=== PATIENT | male | born 1995 | race Hispanic/Latino ===

== ENCOUNTER 2023-04-14 02:51 | Emergency (ER) | payer SELFPAY ==
[2023-04-14 03:22] LABS: Bacteria/HPF None Seen HPF (None Seen); Bilirubin Negative (Negative); Blood, Urine Negative (Negative); CAUTI Indications for Culture Dysuria,urgency,freq; Clarity Turbid (Clear); Glucose, Urine (Dipstick) Normal (Negative); Ketone, Urine Negative (Negative); Leukocyte 500 Leu/uL (Negative); Nitrite Negative (Negative); Protein, Urine (Dipstick) Negative (Neg-Trace); RBC/HPF 0-3 HPF (0-3); Specific Gravity, Urine 1.013 (1.002-1.036); Squamous Epithelial None Seen HPF (0-3); Urobilinogen Normal mg/dL (Less than 2); WBC/HPF Greater than 50 HPF (0-3)
[2023-04-14 03:24] LABS: Urine Culture Reflex Yes Yes
[2023-04-14] MEDS ORDERED: cefTRIAXone (ROCEPHIN) 500 MG VIAL ONE (03:43)
[2023-04-14] MEDS ORDERED: Lidocaine 1% MPF 2 ML VIAL ONE (03:43)
[2023-04-14 15:09] LABS: Chlam.trachomatis by PCR,Urine Not Detected (NotDetected); GC N.gonorrhoeae PCR,UrineVOID DETECTED (NotDetected)
== END 2023-04-14 04:08 | disposition home or self-care (01) ==
LOC: ERS 02:51
DX: Z11.3 Encounter for screening for infections with a predominantly sexual mode of transmission (principal); F17.200 Nicotine dependence, unspecified, uncomplicated
CPT/HCPCS: 81001; 87086; 87491; 87591; 96372; 99283; J0696

== ENCOUNTER 2023-04-27 20:52 | Emergency (ER) | payer SELFPAY ==
[2023-04-27 21:40] LABS: #Eosinphils 0.1 thou/uL (0.0-0.7); #Monocytes 0.5 thou/uL (0.11-0.59); #Neutrophils 3.5 thou/uL (1.40-6.50); %Basophils 0.5 % (0.0-1.0); %Eosinophils 1.7 % (0.0-10.0); %Lymphocytes 46.9 % (21.0-51.0); %Monocytes 6.1 % (0.0-10.0); %Neutrophils 44.4 % (42.0-75.0); Hematocrit 46.4 % (42.0-52.0); Hemoglobin 15.8 g/dL (14.0-18.0); Mean Corpuscular HGB CONC 34.1 g/dL (32.0-36.0); Mean Corpuscular Hemoglobin 29.8 pg (27.0-31.0); Mean Corpuscular Volume 87.5 fl (78.0-98.0); Mean Platelet Volume 9.9 fL (7.4-10.4); Platelet Count 318 10x3/uL (130-400); RBC Distribution Width 13.3 % (11.5-14.5); White Blood Cell (WBC) Count 7.8 10x3/uL (4.8-10.8)
[2023-04-27 21:59] LABS: Troponin I Less than 0.010 ng/mL (< 0.028)
[2023-04-27 22:03] LABS: ALT (SGPT) 19 U/L (8-55); AST (SGOT) 23 U/L (5-34); Albumin 4.9 g/dL (3.5-5.0); Alkaline Phosphatase 48 U/L (40-110); Anion Gap 4 mmol/L (10-20); BUN (Urea Nitrogen) 12 mg/dL (8.9-20.6); Bilirubin, Total 0.8 mg/dL (0.2-1.2); Calc. Creatinine Clearance 0 mL/min (70-130); Carbon Dioxide 31 mmol/L (22-29); Chloride 101 mmol/L (98-107); Estimated GFR 103; Glucose 70 mg/dL (70-105); Potassium 2.9 mmol/L (3.5-5.1); Sodium 133 mmol/L (136-145)
[2023-04-27] MEDS ORDERED: Potassium Chloride 20 MEQ TAB ONE (22:32)
[2023-04-27 22:58] LABS: Globulin 3.1 g/dL (2.4-3.5)
== END 2023-04-27 23:20 | disposition home or self-care (01) ==
LOC: ERS 20:52
DX: R07.9 Chest pain, unspecified (principal); R00.2 Palpitations; F17.200 Nicotine dependence, unspecified, uncomplicated
CPT/HCPCS: 71045; 80053; 84484; 85025; 93005; 96360

== ENCOUNTER 2023-06-12 22:55 | Emergency (ER) | payer SELFPAY ==
[2023-06-12] MEDS ORDERED: Ipratropium/Albuterol 3 ML NEB ONE (23:14)
== END 2023-06-12 23:40 | disposition left against medical advice (07) ==
LOC: ERS 22:55
DX: Z53.21 Procedure and treatment not carried out due to patient leaving prior to being seen by health care provider (principal)
CPT/HCPCS: J7620

== ENCOUNTER 2023-06-16 05:15 | Emergency (ER) | payer BC, SELFPAY ==
[2023-06-16] MEDS ORDERED: Dexamethasone 4 mg/ml Vial ONE (05:40)
== END 2023-06-16 05:58 | disposition home or self-care (01) ==
LOC: ERS 05:15
DX: J45.901 Unspecified asthma with (acute) exacerbation (principal); F17.210 Nicotine dependence, cigarettes, uncomplicated
CPT/HCPCS: J1100

== ENCOUNTER 2023-06-28 13:16 | Emergency (ER) | payer BC, OTHER ==
[2023-06-28 14:25] LABS: #Eosinphils 0.1 thou/uL (0.0-0.7); #Monocytes 0.6 thou/uL (0.11-0.59); #Neutrophils 4.5 thou/uL (1.40-6.50); %Basophils 0.3 % (0.0-1.0); %Eosinophils 1.5 % (0.0-10.0); %Lymphocytes 40.4 % (21.0-51.0); %Monocytes 6.3 % (0.0-10.0); %Neutrophils 51.3 % (42.0-75.0); Hematocrit 47.4 % (42.0-52.0); Hemoglobin 16.4 g/dL (14.0-18.0); Mean Corpuscular HGB CONC 34.6 g/dL (32.0-36.0); Mean Corpuscular Hemoglobin 30.7 pg (27.0-31.0); Mean Corpuscular Volume 88.8 fl (78.0-98.0); Mean Platelet Volume 9.6 fL (7.4-10.4); Platelet Count 324 10x3/uL (130-400); Red Blood Cell (RBC) Count 5.34 mill/uL (4.70-6.10); White Blood Cell (WBC) Count 8.8 10x3/uL (4.8-10.8)
[2023-06-28 14:59] LABS: ALT (SGPT) 19 U/L (8-55); AST (SGOT) 19 U/L (5-34); Albumin 5.3 g/dL (3.5-5.0); Alkaline Phosphatase 44 U/L (40-110); Anion Gap 14 mmol/L (10-20); BUN (Urea Nitrogen) 10 mg/dL (8.9-20.6); Bilirubin, Total 0.8 mg/dL (0.2-1.2); Calc. Creatinine Clearance 0 mL/min (70-130); Calcium 10.3 mg/dL (7.8-10.44); Carbon Dioxide 26 mmol/L (22-29); Chloride 102 mmol/L (98-107); Estimated GFR 103; Globulin 2.6 g/dL (2.4-3.5); Glucose 97 mg/dL (70-105); Potassium 4.2 mmol/L (3.5-5.1); Protein, Total 7.9 g/dL (6.0-8.3); Sodium 138 mmol/L (136-145)
[2023-06-28] MEDS ORDERED: Ibuprofen 200 MG TAB ONE (15:43)
== END 2023-06-28 15:47 | disposition home or self-care (01) ==
LOC: ERS 13:16
DX: L03.113 Cellulitis of right upper limb (principal); F17.210 Nicotine dependence, cigarettes, uncomplicated
CPT/HCPCS: 36415; 80053; 85025; 99283

== ENCOUNTER 2023-07-03 04:49 | Emergency (ER) | payer BC, OTHER ==
[2023-07-03] MEDS ORDERED: Ketorolac Tromethamine 30 MG/ML VIAL ONE (05:21)
[2023-07-03] MEDS ORDERED: Acetaminophen 325 MG TAB ONE (06:56)
== END 2023-07-03 07:11 | disposition home or self-care (01) ==
LOC: ERS 04:49
DX: G50.1 Atypical facial pain (principal); R51.9 Headache, unspecified; F17.210 Nicotine dependence, cigarettes, uncomplicated
CPT/HCPCS: 70450; 70486; 96372; J1885

== ENCOUNTER 2023-07-04 02:41 | Emergency (ER) | payer BC, OTHER ==
[2023-07-04] MEDS ORDERED: Ketorolac Tromethamine 30 MG/ML VIAL ONE (05:16)
== END 2023-07-04 06:03 | disposition home or self-care (01) ==
LOC: ERS 02:41
DX: H66.91 Otitis media, unspecified, right ear (principal); H73.91 Unspecified disorder of tympanic membrane, right ear; F17.210 Nicotine dependence, cigarettes, uncomplicated
CPT/HCPCS: 96372; 99283; J1885

== ENCOUNTER 2023-07-31 19:24 | Emergency (ER) | payer BC ==
[2023-07-31] MEDS ORDERED: Dexamethasone 10 MG/ML VIAL ONE (20:41)
[2023-07-31] MEDS ORDERED: Ipratropium/Albuterol 3 ML NEB ONE ×2 (20:42→20:43)
[2023-07-31 21:08] LABS: #Eosinphils 0.1 thou/uL (0.0-0.7); #Monocytes 0.4 thou/uL (0.11-0.59); #Neutrophils 2.5 thou/uL (1.40-6.50); %Basophils 0.4 % (0.0-1.0); %Eosinophils 1.8 % (0.0-10.0); %Lymphocytes 59.1 % (21.0-51.0); %Monocytes 5.4 % (0.0-10.0); Hematocrit 46.2 % (42.0-52.0); Hemoglobin 15.3 g/dL (14.0-18.0); Mean Corpuscular HGB CONC 33.1 g/dL (32.0-36.0); Mean Corpuscular Hemoglobin 29.9 pg (27.0-31.0); Mean Corpuscular Volume 90.2 fl (78.0-98.0); Mean Platelet Volume 9.8 fL (7.4-10.4); Platelet Count 288 10x3/uL (130-400); RBC Distribution Width 12.9 % (11.5-14.5); Red Blood Cell (RBC) Count 5.12 mill/uL (4.70-6.10); White Blood Cell (WBC) Count 7.6 10x3/uL (4.8-10.8)
[2023-07-31 21:39] LABS: ALT (SGPT) 23 U/L (8-55); AST (SGOT) 20 U/L (5-34); Albumin 4.3 g/dL (3.5-5.0); Alkaline Phosphatase 34 U/L (40-110); Anion Gap 13 mmol/L (10-20); BUN (Urea Nitrogen) 8 mg/dL (8.9-20.6); Bilirubin, Total 0.6 mg/dL (0.2-1.2); Calc. Creatinine Clearance 0 mL/min (70-130); Calcium 9.3 mg/dL (7.8-10.44); Carbon Dioxide 28 mmol/L (22-29); Chloride 104 mmol/L (98-107); Estimated GFR 124; Globulin 2.5 g/dL (2.4-3.5); Glucose 108 mg/dL (70-105); Potassium 4.7 mmol/L (3.5-5.1); Protein, Total 6.8 g/dL (6.0-8.3); Sodium 140 mmol/L (136-145)
== END 2023-07-31 22:52 | disposition home or self-care (01) ==
LOC: ERS 19:24
DX: J06.9 Acute upper respiratory infection, unspecified (principal); F17.210 Nicotine dependence, cigarettes, uncomplicated; Z20.822 Contact with and (suspected) exposure to COVID-19
CPT/HCPCS: 36415; 80053; 85025; 86140; 87635; 87804; 87807; 94640; J1100; J7620

== ENCOUNTER 2023-09-16 21:40 | Emergency (ER) | payer SELFPAY ==
[2023-09-16] MEDS ORDERED: Ketorolac Tromethamine 30 MG (1 mL) VIAL ONE (22:59)
[2023-09-16] MEDS ORDERED: Dicyclomine 20 MG TAB ONE (22:59)
== END 2023-09-16 23:57 | disposition home or self-care (01) ==
LOC: ERS 21:40
DX: U07.1 COVID-19 (principal); F17.210 Nicotine dependence, cigarettes, uncomplicated
CPT/HCPCS: 71045; 96372; J1885